=== PATIENT | female | born 1960 | race Caucasian/White ===

== ENCOUNTER 2017-07-01 16:38 | Emergency (ER) | payer SELFPAY ==
[~2017-07-01] VITALS: Ht 157.5 cm; Wt 72.5 kg
[~2017-07-01 16:38] MED LIST: ADVAI250I PO; ALBU8I INH; BENZ100 PO
[2017-07-01 16:44] VITALS: BP 107/63; PULSE 90; RESP 20; TEMP 99.3; O2SAT 96
[2017-07-01] MEDS ORDERED: predniSONE 20 MG TAB PO ONE (17:00)
[2017-07-01] MEDS ORDERED: ONDANSETRON ODT 4 MG TAB PO ONE (17:00)
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
[2017-07-01] MEDS: RESP: ALBUTEROL 2.5 MG/IPRATROPIUM 0.5 MG NEB (SCH) INH ×2 (17:02→17:03)
[2017-07-01 17:17] VITALS: O2SAT 98
[2017-07-01] MEDS ORDERED: PRED-503 PO (17:26)
[2017-07-01] MEDS ORDERED: ZITHTAB PO (17:26)
[2017-07-01] MEDS ORDERED: VENTAER INH (17:26)
--- NOTE | 2017-07-01 17:54 | RADRPT ---
EXAM DATE/TIME: 07/01/2017 17:25 [facility] COMPARISON: No previous studies available for comparison. INDICATIONS : Short of breath. Congestion. Vomiting. MEDICAL HISTORY : None. SURGICAL HISTORY : None. ENCOUNTER: Initial ACUITY: 4 - 6 days PAIN SCORE: 0/10 LOCATION: Bilateral chest FINDINGS: A single view of the chest demonstrates the lungs to be symmetrically aerated without evidence of mas s, infiltrate or effusion. The cardiomediastinal contours are unremarkable. Osseous structures are intact. CONCLUSION: No acute disease. Jl Lee MD on July 01, 2017 at 17:52 Board Certified Radiologist. This report was verified electronically.
[2017-07-01] MEDS ORDERED: ZOFR4TAB3 SL (17:56)
[2017-07-01 18:12] VITALS: BP 101/60
== END 2017-07-01 18:16 | disposition home or self-care (01) ==
LOC: PHED 16:38
DX: J40 Bronchitis, not specified as acute or chronic (principal); F17.210 Nicotine dependence, cigarettes, uncomplicated
CPT/HCPCS: 71010; 87804; 94640; 94664; 99284; J7512

== ENCOUNTER 2018-04-05 22:15 | Inpatient (IN) ==
[2018-04-05] MEDS ORDERED: Morphine Inj 4 MG/ML Vial IV.PUSH ONE (23:34)
--- NOTE | 2018-04-05 23:39 | ED ---
HPI General Chief Complaint: Abdominal Pain Stated Complaint: Severe lower abd pain x3days History of Present Illness HPI narrative: 57-year-old female with a past medical history EDS and psoriasis presents to the emergency room complaining of 3 day history of lower abdominal pain worse on the left lower quadrant radiating into the suprapubic and the right lower quadrant area. Pain is moderate to severe persistent worse with movement and better with immobilization and rest. Patient is guarding her abdomen and appears to be in distress due to pain. Patient has some nausea but no vomiting or rectal bleeding. Patient was seen by the primary care physician 3 days ago and was given pain medications however her symptoms worsened over the course of 2 days. Patient denies diarrhea, constipation, fever, chills, rash, lower extremity pain or swelling, chest pain or shortness of breath. Related Data Home Medications Medication Instructions Recorded Confirmed levofloxacin [Levaquin] 500 mg PO DAILY 04/05/18 04/05/18 Allergies Allergy/AdvReac Type Severity Reaction Status Date / Time codeine Allergy Severe Anaphylaxis Verified 04/05/18 22:26 dicyclomine Allergy Severe Anaphylaxis Verified 04/05/18 22:26 lidocaine Allergy Severe Anaphylaxis Verified 04/05/18 22:26 penicillin G Allergy Severe Anaphylaxis Verified 04/05/18 22:26 transparent dressing Allergy Severe Anaphylaxis Verified 04/05/18 22:26 Review of Systems Constitutional Denies fever(s) Eyes Denies change in vision ENT Denies headache(s) and Denies nasal congestion Cardiovascular Denies chest pain Respiratory Denies dyspnea Gastrointestinal Reports abdominal pain and Reports nausea Genitourinary Denies difficulty voiding Musculoskeletal Denies myalgias Integumentary/Breasts Denies rash Neurologic Denies headache(s) Psychiatric Denies depression Endocrine Denies polyuria Hematologic/Lymphatic Denies easy bruising [facility] Medical History Medical History Cervical dysplasia (Acute) Elver-Danlos syndrome (Acute) Gastroenteritis (Acute) Psoriasis (Acute) Surgical History Surgical History H/O total hysterectomy (Acute) History of tonsillectomy (Acute) Social History Social History Substance History: No History of Abuse Second Hand Smoke Exposure: No Smoking Status: Current every day smoker Tobacco Type: Cigarettes How Often Do You Have a Drink Containing Alcohol: Monthly or less Recent Travel [facility] within the Last 8 Weeks: No Recent Out of Country Travel within the Last 8 Weeks: No Immunization History Tetanus Immunization: <5 Years Tetanus Immunization Year if Known: 2017 Hx Influenza Vaccine This Season: Yes Exam Narrative Exam Narrative: GENERAL: Patient is alert and oriented -3 SKIN: Focused skin assessment warm/dry. HEAD: Atraumatic. Normocephalic. EYES: Pupils equal and round. No scleral icterus. No injection or drainage. ENT: No nasal bleeding or discharge. Mucous membranes pink and moist. NECK: Trachea midline. No JVD. CARDIOVASCULAR: Regular rate and rhythm. No murmur appreciated. RESPIRATORY: No accessory muscle use. Clear to auscultation. Breath sounds equal bilaterally. GASTROINTESTINAL: Abdomen soft, tender lower abdominal area was voluntary guarding, nondistended. Hepatic and splenic margins not palpable. MUSCULOSKELETAL: No obvious deformities. No clubbing. No cyanosis. No edema. NEUROLOGICAL: Awake and alert. No obvious cranial nerve deficits. Motor grossly within normal limits. Normal speech. PSYCHIATRIC: Appropriate mood and affect; insight and judgment normal. Course Reevaluation(s) Reevaluation #1: Patient condition improved during the ER course. I personally reexamined and counseled the patient about her diagnosis and results. Time: 01:30 Initial Documented Vital Signs Temperature 98.3 F 04/05/18 22:20 Pulse Rate 91 H 04/05/18 22:20 Respiratory Rate 20 04/05/18 22:20 Blood Pressure 111/61 04/05/18 22:20 Pulse Oximetry 96 04/05/18 22:20 Last Documented Vital Signs Temperature 96.7 F L 04/06/18 04:00 Pulse Rate 74 04/06/18 04:00 Respiratory Rate 16 04/06/18 04:00 Blood Pressure 120/56 L 04/06/18 04:00 Pulse Oximetry 97 04/06/18 04:00 Medical Decision Making [facility] Narrative Medical Screen Exam Complete: Yes Emergency Medical Condition: Yes Lab Data Result diagrams: 04/05/18 23:40 04/05/18 23:40 Lab Results 04/05/18 04/05/18 04/05/18 Range/Units 23:40 23:40 23:40 CBC w Diff Auto diff final WBC 9.9 (4.0-11.0) th/mm3 RBC 4.92 (4.00-5.30) mil/mm3 Hgb 15.6 H (11.6-15.3) gm/dL Hct 44.7 (35.0-46.0) % MCV 90.9 (80.0-100.0) fL MCH 31.7 (27.0-34.0) pg MCHC 34.9 (32.0-36.0) % RDW 12.4 (11.6-17.2) % Plt Count 280 (150-450) th/mm3 MPV 9.2 (7.0-11.0) fL Neut % (Auto) 60.7 (16.0-70.0) % Lymph % (Auto) 29.1 (9.0-44.0) % Arch[place]ta % (Auto) 7.8 (0.0-8.0) % Eos % (Auto) 1.8 (0.0-4.0) % Baso % (Auto) 0.6 (0.0-2.0) % Neut # (Auto) 5.9 (1.8-7.7) th/mm3 Lymph # (Auto) 2.9 (1.0-4.8) th/mm3 Archuleta # (Auto) 0.8 (0.0-0.9) th/mm3 Eos # (Auto) 0.2 (0.0-0.4) th/mm3 Baso # (Auto) 0.1 (0.0-0.2) th/mm3 WBC Differential . Differential Comment . Sodium 140 (136-145) meq/L Potassium 3.2 L (3.5-5.1) meq/L Chloride 104 (98-107) meq/L Carbon Dioxide 29.2 (21.0-32.0) meq/L Anion Gap 7 (5-15) meq/L BUN 17 (7-18) mg/dL Creatinine 0.85 (0.50-1.00) mg/dL Estimated GFR 69 L (>89) mL/min Random Glucose 119 H (74-106) mg/dL Calcium 9.0 (8.5-10.1) mg/dL Total Bilirubin 0.3 (0.2-1.0) mg/dL AST 11 L (15-37) U/L ALT 19 (10-53) U/L Alkaline Phosphatase 107 (45-117) U/L Troponin I Less than 0.02 L (0.02-0.05) ng/mL Total Protein 7.2 (6.4-8.2) g/dL Albumin 3.5 (3.4-5.0) g/dL Lipase 112 (73-393) U/L Urine Color Yellow (Yellw/Straw) Urine Clarity Clear (Clear) Urine pH 5.5 (5.0-8.5) Ur Specific Ayr 1.020 (1.002-1.035) Urine Protein Negative (Neg-Trace) mg/dL Urine Glucose (UA) Negative (Negative) mg/dL Urine Ketones Negative (Negative) mg/dL Urine Occult Blood Negative (Negative) Urine Nitrate Negative (Negative) Urine Bilirubin Negative (Negative) Urine Urobilinogen 0.2 (Less than 2) mg/dL Ur Leukocyte Esterase Negative (Negative) Urine RBC 0-3 (0-3) /hpf Urine WBC 0-5 (0-5) /hpf Ur Squamous Epith Cells 0-5 (0-5) /hpf Micro UA Comment Culture not ind Ur Microscopic Review Microscopic reviewed Urine Culture Comments Culture not ind Imaging Data Radiologist's impression: Abdomen/Pelvis CT 04/06/18 00:11 CONCLUSION: 1. Moderate severity, uncomplicated acute diverticulitis of the sigmoid colon. 2. No other acute abnormality seen within the abdomen or pelvis. Chronic findings of the lumbar spine as described. Discharge Plan Discharge Disposition Patient Disposition: 02 Transfer to [facility] Discharge Condition Condition: Fair Discharge Details Discharge Comment: Admission is accepted by Dr. Lamas Diagnosis: Diverticulitis Physicians Team ED Provider: Reuben Canales Primary Care Provider: Bryce Potts Attending Provider: Ashlie Mosquera Status ED Status: Left Department Discharge Information Discharge Date/Time: 04/06/18 03:15
[2018-04-05] MEDS: Sod Chloride 0.9% Inj 1,000 ML IV.CONT SCH (23:47)
[2018-04-06 00:01] LABS: Baso # (Auto) 0.1 th/mm3 (0.0-0.2); Baso % (Auto) 0.6 % (0.0-2.0); Eos # (Auto) 0.2 th/mm3 (0.0-0.4); Eos % (Auto) 1.8 % (0.0-4.0); Hematocrit 44.7 % (35.0-46.0); Hemoglobin 15.6 gm/dL (11.6-15.3); Lymph # (Auto) 2.9 th/mm3 (1.0-4.8); Lymph % (Auto) 29.1 % (9.0-44.0); Mean Corpuscular HGB Conc 34.9 % (32.0-36.0); Mean Corpuscular Hemoglobin 31.7 pg (27.0-34.0); Mean Corpuscular Volume 90.9 fL (80.0-100.0); Mean Platelet Volume 9.2 fL (7.0-11.0); Mono # (Auto) 0.8 th/mm3 (0.0-0.9); Mono % (Auto) 7.8 % (0.0-8.0); Neut # (Auto) 5.9 th/mm3 (1.8-7.7); Neut % (Auto) 60.7 % (16.0-70.0); Platelet Count 280 th/mm3 (150-450); Red Blood Count 4.92 mil/mm3 (4.00-5.30); Red Cell Distribution Width 12.4 % (11.6-17.2); White Blood Count 9.9 th/mm3 (4.0-11.0)
[2018-04-06 00:02] LABS: Bilirubin,Urine Negative (Negative); Clarity,Urine Clear (Clear); Color,Urine Yellow (Yellw/Straw); Glucose,Urine (UA) Negative (Negative); Leukocyte Esterase,Urine Negative (Negative); Nitrite,Urine Negative (Negative); PH,Urine 5.5 (5.0-8.5); Urobilinogen,Urine 0.2 mg/dL (Less than 2)
[2018-04-06 00:06] LABS: RBC,Urine 0-3 /hpf (0-3); Squamous Epithelial Cell,Urine 0-5 /hpf (0-5); WBC,Urine 0-5 /hpf (0-5)
[2018-04-06 00:09] LABS: Chloride 104 meq/L (98-107); Potassium 3.2 meq/L (3.5-5.1); Sodium 140 meq/L (136-145)
[2018-04-06 00:13] LABS: Albumin 3.5 g/dL (3.4-5.0); Anion Gap 7 meq/L (5-15); Blood Urea Nitrogen 17 mg/dL (7-18); Carbon Dioxide 29.2 meq/L (21.0-32.0); Glucose,Random 119 mg/dL (74-106); Lipase 112 U/L (73-393)
[2018-04-06 00:16] LABS: Alanine Aminotransferase 19 U/L (10-53); Aspartate Aminotransferase 11 U/L (15-37); Glomerular Filtration Rate 69 mL/min (>89)
[2018-04-06 00:18] LABS: Total Protein 7.2 g/dL (6.4-8.2)
[2018-04-06 00:19] LABS: Alkaline Phosphatase 107 U/L (45-117)
--- NOTE | 2018-04-06 00:59 | CT ---
EXAM DATE: 04/06/2018 12:35 AM EDT AGE/SEX: 57 years / Female INDICATIONS: Left lower quadrant pain for three days. CLINICAL DATA: This is the patient's initial encounter. Patient reports that signs and symptoms have been present for 3 days and indicates a pain score of 10/10. MEDICAL/SURGICAL HISTORY: . Gastroenteritis. Hysterectomy. RADIATION DOSE: 15.38 CTDI (mGy) COMPARISON: No prior exams available for comparison. TECHNIQUE: Multiple contiguous axial images were obtained through the abdomen. Images were obtained using multiple row detector helical technique. Using automated exposure control and adjustment of the mA and/or kV according to patient size, radiation dose was kept as low as reasonably achievable to o btain optimal diagnostic quality images. DICOM format image data is available electronically for rev iew and comparison. FINDINGS: Moderate severity acute diverticulitis involves the midportion of the sigmoid colon. No abscess, perf oration or obstruction. No free fluid. Hysterectomy changes are noted. The rest of the colon is agus l. Stomach and small bowel within normal limits. Noncontrast appearance of the liver, spleen, pancreas, adrenal glands and kidneys within normal limit s. No infiltrate or effusion seen of the visualized lung bases. Chronic left L5 pars defect present with a couple millimeters of L5/S1 spondylolisthesis. A broad kat tral to left paracentral/foraminal disc protrusion is present at L5/S1 and there is left greater than right foraminal stenosis at this level. No acute bony abnormality demonstrated. CONCLUSION: 1. Moderate severity, uncomplicated acute diverticulitis of the sigmoid colon. 2. No other acute abnormality seen within the abdomen or pelvis. Chronic findings of the lumbar spin e as described. Electronically signed by: Tomi Camarillo MD 04/06/2018 12:58 AM EDT
[2018-04-06] MEDS ORDERED: Levofloxacin 500 mg Premix Inj 500 MG/100 ML PIGGYBACK IV.SIG ONE (01:02)
[2018-04-06] MEDS ORDERED: Sod Chloride 0.9% Inj 1,000 ML IV.SIG SCH (01:15)
[2018-04-06] MEDS ORDERED: Bisacodyl 10 MG Supp RECTAL PRN (01:30)
[2018-04-06] MEDS: Aztreonam Inj 2 GM in Sodium Chloride 0.9% Inj 100 ML IV.SIG SCH ×2 (03:25→09:55)
[2018-04-06] MEDS ORDERED: Morphine Sulfate Inj 2 MG/ML Vial IV.PUSH PRN (03:28)
[2018-04-06] MEDS ORDERED: oxyCODONE/Acetaminophen 10/325 Tablet PO PRN (03:28)
[2018-04-06] MEDS ORDERED: Morphine Inj 4 MG/ML Vial IV.PUSH PRN ×2 (03:28)
[2018-04-06] MEDS ORDERED: Naloxone Inj 0.4 MG/ML Vial IV.PUSH PRN (03:28)
[2018-04-06] MEDS: Sod Chloride 0.9% Inj 1,000 ML IV.CONT SCH (09:30)
[2018-04-06] MEDS ORDERED: Ketorolac Inj 30 MG/ML (IVP) Vial IV.PUSH ONE (11:16)
[2018-04-06] MEDS ORDERED: Ciprofloxacin 500 MG Tablet PO SCH (13:00)
--- NOTE | 2018-04-06 13:21 | P.HP ---
History of Present Illness Primary Care Physician: Bryce Potts MD Chief Complaint: Abdominal pain History of Present Illness: 57-year-old female with known history of COPD, Elver-Danlos syndrome, psoriasis who presented the hospital for evaluation of abdominal pain. Patient states that her pain started last Wednesday and progressively got worse. She is complaining of a diffuse abdominal pain. She had associated nausea without any episodes of vomiting. Denies any melena, hematochezia, diarrhea or constipation. She went to her primary medical doctor's office and she was told that she had gastroenteritis and was prescribed pain medication. However her pain did not improve and he continually got worse, she was told by her primary medical doctor that if she got worse then she needed to go to the ER for evaluation. Patient presented to the emergency department and was given morphine for pain control which did help. CT scan did indicate uncomplicated diverticulitis. It was recommended by the ER physician that the patient be admitted for further evaluation and management. Upon evaluating patient this morning and she states that her pain is controlled. She still having nausea. She denies any diarrhea, melena or hematochezia - Diagnosis (1) Diverticulitis Inpatient Certification: I certify that the inpatient services were ordered in accordance with Medicare regulations governing the order. This includes certification that hospital inpatient services are reasonable and necessary and in the case of services not specified as inpatient-only under 42 CFR 419.22(n), that they are appropriately provided as inpatient services in accordance to with the 2-midnight benchmark under 43 CFR 412.3(e) Estimated Total Length of Stay (Days): 2 Plans for Post Hospital Care: Not yet determined Review of Systems All other systems reviewed negative except as stated in HPI Gastrointestinal: Reports abdominal pain PMFSH - History History Provided By: Patient - Medical History Medical History: Medical History (Last Updated 04/06/18 @ 11:10 by RANI Chen) COPD (chronic obstructive pulmonary disease) Cervical dysplasia Elver-Danlos syndrome Gastroenteritis Psoriasis - Surgical History Surgical History: Surgical History (Last Updated 04/06/18 @ 13:17 by RANI Chen) H/O total hysterectomy History of bladder surgery History of hip surgery History of shoulder surgery History of tonsillectomy - Family History Family History: Family History (Last Updated 04/06/18 @ 13:17 by RANI Chen) Mother Family history of cancer - Tobacco History Second Hand Smoke Exposure: No Tobacco Use In Past 30 Days: Yes Smoking Status: Current every day smoker Tobacco Type: Cigarettes - Alcohol History How Often Do You Have a Drink Containing Alcohol: Monthly or less - Substance Use History Substance History: No History of Abuse - Travel History Recent Travel in the [place] Within the Last 8 Weeks: No Recent Travel Out of the Country Within the Last 8 Weeks: No - Immunization History Tetanus Immunization: <5 Years Tetanus Immunization Year if Known: 2017 Hx Influenza Vaccine This Season: Yes Medications and Allergies Active Medications: Active Medications Al Hydroxide/Mg Hydroxide (Milk Of Magnesia Liq) 30 ml PO Q12H PRN PRN Reason: Mild Constipation Bisacodyl (Dulcolax Supp) 10 mg RECTAL DAILY PRN PRN Reason: SEVERE CONSITIPATION Ciprofloxacin HCl (Cipro) 500 mg PO Q12HR [facility] Last Admin: 04/06/18 13:03 Dose: 500 mg Sodium Chloride (Ns Inj) 1,000 mls @ 100 mls/hr IV.CONT .Q10H [facility] Stop: 04/07/18 05:44 Last Admin: 04/06/18 09:30 Dose: 125 mls/hr Sodium Chloride (Ns Inj) 1,000 mls @ 0 mls/hr IV.SIG BOLUS DAWNA Lactulose (Lactulose Liq) 30 ml PO DAILY PRN PRN Reason: SEVERE CONSITIPATION Metronidazole (Flagyl) 500 mg PO Q8HR [facility] Last Admin: 04/06/18 13:03 Dose: 500 mg Naloxone HCl (Narcan Inj) 0.4 mg IV.PUSH UNSCH PRN PRN Reason: SEE LABEL COMMENTS Oxycodone/Acetaminophen (Percocet 10/325 Mg) 1 tab PO Q6H PRN PRN Reason: PAIN SCALE 6 TO 10 Last Admin: 04/06/18 08:29 Dose: 1 tab Oxycodone/Acetaminophen (Percocet 5/325 Mg) 1 tab PO Q6H PRN PRN Reason: PAIN SCALE 3 TO 5 Promethazine HCl (Phenergan Inj) 25 mg IM Q6H PRN PRN Reason: NAUSEA OR VOMITING Sennosides (Senokot) 17.2 mg PO Q12H PRN PRN Reason: Moderate Constipation Sodium Chloride (Ns Flush) 2 ml IV.FLUSH PRN PRN PRN Reason: FLUSH AFTER USING IV ACCESS Allergies Allergy/AdvReac Type Severity Reaction Status Date / Time codeine Allergy Severe Anaphylaxis Verified 04/05/18 22:26 dicyclomine Allergy Severe Anaphylaxis Verified 04/05/18 22:26 lidocaine Allergy Severe Anaphylaxis Verified 04/05/18 22:26 penicillin G Allergy Severe Anaphylaxis Verified 04/05/18 22:26 transparent dressing Allergy Severe Anaphylaxis Verified 04/05/18 22:26 Home Medications Medication Instructions Recorded Confirmed Type levofloxacin [Levaquin] 500 mg PO DAILY 04/05/18 04/05/18 History Exam Vital signs: Vital Signs 04/05/18 22:20 04/05/18 23:53 04/06/18 02:44 Temperature 98.3 F Pulse Rate 91 H 76 71 Respiratory Rate 20 18 20 Blood Pressure 111/61 100/61 102/59 L Pulse Oximetry 96 96 94 L 04/06/18 04:00 04/06/18 08:00 Temperature 97.4 F L 97.2 F L Pulse Rate 72 69 Respiratory Rate 16 20 Blood Pressure 104/67 101/57 L Pulse Oximetry 96 96 Intake & Output 04/05/18 04/06/18 04/06/18 18:59 06:59 18:59 Intake Total 300 / 300 1200 / 1200 Output Total 500 / 500 Balance 300 / 300 700 / 700 Weight 76.5 kg Intake: IV 300 / 300 1200 / 1200 NS Inj 1,000 ML @ 100 mls/hr IV 1000 / 1000 .CONT .Q10H DAWNA Rx#:[id number] Azactam Inj 2 GM In NS Inj 100 100 / 100 100 / 100 ML @ 200 mls/hr IV.SIG Q8H DAWNA Rx#:[id number] Levaquin 500 mg Premix Inj 500 100 / 100 mg In 100 ml @ 100 mls/hr IV. SIG ONCE ONE Rx#:[id number] Flagyl 500 MG Inj 100 ML @ 100 100 / 100 100 / 100 mls/hr IV.SIG Q6H DAWNA Rx#: [id number] Output: Emesis 500 / 500 Other: # Emeses 2 Narrative: GENERAL: Well-developed, well-nourished, in no acute distress. alert and orientated HEENT: Head is normocephalic without any lesions or masses noted. Facial features are symmetric. Eyes: Pupils equal round reactive to light. Extraocular muscles are intact. Conjunctivae were clear. Oropharyngeal: Pharynx without any erythema edema. Tongue is midline without deviation. Buccal mucosa is moist without any masses or lesions NECK: Supple without any masses. Trachea midline no deviation. No JVD, no bruits are appreciated CARDIAC: Regular rhythm, regular rate. S1/S2 are heard. No murmurs gallops or rubs. LUNGS: Clear to auscultation bilaterally. No wheeze, rhonchi or rales. No use of accessory muscles on inspiration or expiration. ABDOMEN: Soft, mild diffuse tenderness of her abdomen. Nondistended. Bowel sounds heard in all 4 quadrants. No organomegaly or masses. Negative rebound, negative guarding EXTREMITIES: No edema, pulses are equal bilaterally. No cyanosis or clubbing NEUROLOGY: Mood and affect appear appropriate. Cranial nerves II through XII grossly intact. Muscle strength 5/5 in upper and lower extremities bilaterally. Deep tendon reflexes are 2+ in upper and lower extremities bilaterally. Results - Labs CBC & Chem 7: 04/05/18 23:40 04/05/18 23:40 Labs: Laboratory Results - last 24 hr 04/05/18 04/05/18 04/05/18 23:40 23:40 23:40 CBC w Diff Auto diff final WBC 9.9 RBC 4.92 Hgb 15.6 H Hct 44.7 MCV 90.9 MCH 31.7 MCHC 34.9 RDW 12.4 Plt Count 280 MPV 9.2 Neut % (Auto) 60.7 Lymph % (Auto) 29.1 [place] % (Auto) 7.8 Eos % (Auto) 1.8 Baso % (Auto) 0.6 Neut # (Auto) 5.9 Lymph # (Auto) 2.9 [place] # (Auto) 0.8 Eos # (Auto) 0.2 Baso # (Auto) 0.1 WBC Differential . Differential Comment . Sodium 140 Potassium 3.2 L Chloride 104 Carbon Dioxide 29.2 Anion Gap 7 BUN 17 Creatinine 0.85 Estimated GFR 69 L Random Glucose 119 H Calcium 9.0 Total Bilirubin 0.3 AST 11 L ALT 19 Alkaline Phosphatase 107 Troponin I Less than 0.02 L Total Protein 7.2 Albumin 3.5 Lipase 112 Urine Color Yellow Urine Clarity Clear Urine pH 5.5 Ur Specific [place] 1.020 Urine Protein Negative Urine Glucose (UA) Negative Urine Ketones Negative Urine Occult Blood Negative Urine Nitrate Negative Urine Bilirubin Negative Urine Urobilinogen 0.2 Ur Leukocyte Esterase Negative Urine RBC 0-3 Urine WBC 0-5 Ur Squamous Epith Cells 0-5 Micro UA Comment Culture not ind Ur Microscopic Review Microscopic reviewed Urine Culture Comments Culture not ind - Imaging Impressions Abdomen/Pelvis CT 04/06/18 00:11 CONCLUSION: 1. Moderate severity, uncomplicated acute diverticulitis of the sigmoid colon. 2. No other acute abnormality seen within the abdomen or pelvis. Chronic findings of the lumbar spine as described. Caprini VTE Risk Assessment Caprini VTE Risk Assessment: No/Low Risk (score <= 1) Caprini Risk Assessment Model: Point Value = 1 Point Value = 2 Point Value = 3 Point Value = 5 Age 41-60 Minor surgery BMI > 25 kg/m2 Swollen legs Varicose veins or History of unexplained or recurrent spontaneous Oral contraceptives or hormone replacement Sepsis (< 1 month) Serious lung disease, including pneumonia (< 1 month) Abnormal pulmonary function Acute myocardial infarction Congestive heart failure (< 1 month) History of inflammatory bowel disease Medical patient at bed rest Age 61-74 Arthroscopic surgery Major open surgery (> 45 min) Laparoscopic surgery (> 45 min) Malignancy Confined to bed (> 72 hours) Immobilizing plaster cast Central venous access Age >= 75 History of VTE Family history of VTE Factor V Leiden Prothrombin 10295A Lupus anticoagulant Anticardiolipin antibodies Elevated serum homocysteine Heparin-induced thrombocytopenia Other congenital or acquired thrombophilia Stroke (< 1 month) Elective arthroplasty Hip, pelvis, or leg fracture Acute spinal cord injury (< 1 month) Prophylaxis Regimen: Total Risk Factor Score Risk Level Prophylaxis Regimen 0-1 Low Early ambulation 2 Moderate Order ONE of the following: *Sequential Compression Device (SCD) *Heparin 5000 units SQ BID 3-4 Higher Order ONE of the following medications: *Heparin 5000 units SQ TID *Enoxaparin/Lovenox 40 mg SQ daily (WT < 150 kg, CrCl > 30 mL/min) *Enoxaparin/Lovenox 30 mg SQ daily (WT < 150 kg, CrCl > 10-29 mL/min) *Enoxaparin/Lovenox 30 mg SQ BID (WT < 150 kg, CrCl > 30 mL/min) AND/OR *Sequential Compression Device (SCD) 5 or more Highest Order ONE of the following medications: *Heparin 5000 units SQ TID (Preferred with Epidurals) *Enoxaparin/Lovenox 40 mg SQ daily (WT < 150 kg, CrCl > 30 mL/min) *Enoxaparin/Lovenox 30 mg SQ daily (WT < 150 kg, CrCl > 10-29 mL/min) *Enoxaparin/Lovenox 30 mg SQ BID (WT < 150 kg, CrCl > 30 mL/min) AND *Sequential Compression Device (SCD) Assessment and Plan - Assessment (1) Diverticulitis Code(s): K57.92 - Diverticulitis of intestine, part unspecified, without perforation or abscess without bleeding Status: Acute - Plan Diverticulitis, uncomplicated -CT scan does indicate uncomplicated acute diverticulitis of the sigmoid colon -Patient was given Levaquin in the ER, started on Azactam and Flagyl -We will convert to p.o. medication include Cipro 500 mg twice a day and Flagyl 500 mg every 8 hours -Patient was started on Percocet, morphine for pain control. Patient states that she cannot take Percocet due to allergy to codeine -We will start pain management with Toradol -Advance diet as tolerated -Patient tolerating treatment well. His pain is controlled and tolerating diet will anticipate discharge home with p.o. medications DVT prevention -Low risk, early ambulation Discharge Planning: Discharge home in stable condition Activity: Ad eliot. Diet: Regular diet Medication per medication reconciliation Follow-up with primary medical doctor in 1 week
[2018-04-06] MEDS ORDERED: metroNIDAZOLE 500 MG Tablet PO SCH (14:00)
--- NOTE | 2018-04-06 21:21 | ECG ---
Date Performed: 04/06/2018 Time Performed: 01:40:04 PTAGE: 57 years EKG: Sinus rhythm NORMAL ECG PREVIOUS TRACING : 10/07/2015 06.19 Since the previous tracing, no significant change noted DOCTOR: Levi Delatorre Interpretating Date/Time 04/06/2018 21:19:47
== END 2018-04-06 16:28 | disposition home or self-care (01) ==
LOC: PHED 22:15 → PHEDA 04-06 01:30 → PH3 04-06 03:15
PROVIDERS: ADMIT Hospitalist; ATTEND Hospitalist